=== PATIENT | male | born 1965 | race Caucasian/White ===

== ENCOUNTER → 2021-03-11 10:45 | Outpatient (BNVA) | payer SELFPAY | PROVIDERS: Family Provider Family Medicine; Visit Provider Nurse Practitioner Family | DX: Z20.822 Contact with and (suspected) exposure to COVID-19 (principal); J06.9 Acute upper respiratory infection, unspecified | CPT/HCPCS: 87426 ==

== ENCOUNTER 2025-07-20 10:25 | Emergency (ER) | payer SELFPAY ==
[2025-07-20 10:27] VITALS: BP 146/76; PULSE 95; RESP 18; TEMP 36.7; O2SAT 95; BMI 27.8
--- NOTE | 2025-07-20 10:33 | XRR_ITS ---
PROCEDURE INFORMATION: Exam: XR Left Ribs with PA Chest Exam date and time: 07/20/2025 11:08 AM Age: 59 years old Clinical indication: Painful respiration; posterior lt rib pain post fall; SOB TECHNIQUE: Imaging protocol: Radiologic exam of the left ribs with PA chest. Views: 3 views COMPARISON: No relevant prior studies available. FINDINGS: Lungs: Lungs are well aerated. Pulmonary vascularity is normal. No suspicious pulmonary nodule/s. No focal consolidation is appreciated. Pleural spaces: Blunting of the left costophrenic angle. No pneumothorax. Pleural-parenchymal scarring in the left base. No focal airspace disease. Pulmonary vascularity is normal. Heart/Mediastinum: Unremarkable. No cardiomegaly. Bones/joints: Degenerative changes throughout the mid and lower thoracic spine. Probable acute fracture of the posterior left 7th, 8th and possibly 9th ribs, without significant displacement. Question of old fracture of the left anterior 8th rib versus partial calcification of the costal cartilage XR/XR ribs LT mn 3V w [id number] IMPRESSION: 1. Probable acute fracture of the posterior left 7th, 8th and possibly 9th ribs. 2. Blunting of the left costophrenic angle may represent pleural thickening or a small left pleural effusion.
[2025-07-20] MEDS: HYDROcodone-acetaminophen 7.5-325 mg Tablet 1 TAB PO (10:37)
--- NOTE | 2025-07-20 10:38 | W.ED.BACK ---
HPI - Back Pain/Injury General: Chief Complaint: Back Pain/Injury Stated Complaint: Fall- L Shoulder Pain L elbow Time Seen by Provider: 07/20/25 10:31 Source: patient Mode of arrival: ambulatory Limitations: no limitations History of Present Illness: 59-year-old male states that he had tripped last night and fell and hit his left ribs on his deck. States he been having increasing pain with his left ribs since then pain is much worse when he coughs. He rates his pain a 7 out of 10 currently did take some Aleve at home with minimal relief. He denies other injuries denies hitting his head denies any neck pain. Related Data Previous Rx's ?Medication ?Instructions ?Recorded cephalexin 500 mg capsule 500 mg PO TID 7 days #21 caps 07/20/25 hydrocodone 5 mg-acetaminophen 325 1 tab PO Q8H PRN pain #14 tabs 07/20/25 mg tablet Allergies Allergy/AdvReac Type Severity Reaction Status Date / Time No Known Allergies Allergy Verified 07/20/25 10:31 Physical Exam Const: COMMON NORMALS: no acute distress, patient oriented x3 and healthy appearing HENMT: COMMON NORMALS: normocephalic and atraumatic HEAD & SCALP: normocephalic and atraumatic Eye: COMMON NORMALS: conjunctivae normal CONJUNCTIVA: Yes conjunctivae normal Neck/C-Spine: COMMON NORMALS: full ROM and supple Chest: COMMONS NORMALS: normal inspection of the chest OTHER: Tenderness noted to the left posterior ribs Resp: COMMON NORMALS: normal respiratory effort, No retractions, No use of accessory muscles and clear to auscultation bilaterally AUSCULTATION: clear to auscultation bilaterally Cardio: COMMON NORMALS: regular rate, regular rhythm and No murmurs present (Cardio) RATE: regular rate RHYTHM: regular rhythm GI: COMMON NORMALS: Normal to inspection, nondistended, normoactive bowel sounds present, Soft to palpation, non-tender and no masses PALPATION: Yes Soft to palpation Extremity: COMMON NORMALS: normal to inspection and full ROM Neuro: COMMON NORMALS: patient oriented x3, moves all extremities and no focal motor deficits Psych: COMMON NORMALS: mental status grossly normal, Normal thought process present and cooperative THOUGHT PROCESS: Normal thought process present Skin: COMMON NORMALS: no rashes or lesions noted and no wounds GENERAL SKIN EXAM: no rashes or lesions noted Course Vital Signs: Vital signs: Vital Signs Temperature 98.0 F 07/20/25 10:27 Pulse Rate 95 07/20/25 10:27 Respiratory Rate 18 07/20/25 10:27 Blood Pressure 146/76 07/20/25 10:27 Pulse Oximetry 95 07/20/25 10:27 MDM - Back Pain/Injury Medical Decision Making Patient presents for left rib pain after a fall either contusion or nondisplaced rib fracture he does have a very small effusion he is not hypoxic here is no signs of pneumothorax he had no other injuries from the fall I did inform he needs to make sure he takes big deep breaths will write him hydrocodone along with an antibiotic. He is to follow-up his PCP and return if worsening he understands agrees to plan. Medical Records I reviewed the patient's medical records. XR interpretation done by ED provider, pending radiology final review ED provider radiology interpretation(s): No obvious fracture small effusion on the left Discharge Plan Discharge Patient Disposition: Home Clinical Impression: Fall, Left-sided chest wall pain Condition: Stable Prescriptions: New hydrocodone-acetaminophen 5-325 mg tablet 1 tab PO Q8H PRN (Reason: pain) Qty: 14 0RF cephalexin 500 mg capsule 500 mg PO TID 7 Days Qty: 21 0RF Discharge Orders: Discharge ED (Routine); Ordered 07/20/25 Ordered By: Bridgette Mercer Referrals: Sid Lerner MD [Primary Care Provider, [facility]] - 4-7 days Discharge Diet: Advance as tolerated Discharge Activity: Resume usual activity Patient Instructions: Rib Fracture (ED) Print Language: Namibian Coding Level of Care Code ED Hospital Pharmacy Technician for Angela Rogel
[2025-07-20 11:55] VITALS: BP 134/73; PULSE 88; RESP 17; TEMP 36.6; O2SAT 95
== END 2025-07-20 11:58 | disposition home or self-care (01) ==
PROVIDERS: Emergency Provider Emergency Medicine; Family Provider Family Medicine; PCP Family Medicine
DX: R07.89 Other chest pain (principal); W19.XXXA Unspecified fall, initial encounter
CPT/HCPCS: 71101; 99283; J9999